=== PATIENT | male | born 1940 | race Caucasian/White ===

== ENCOUNTER → 2016-12-14 | Outpatient (CLI) | payer OTHER ==
[2016-12-14 09:37] LABS: FREE T4 (FREE THYROXINE) 1.78 ng/dL (0.93-1.71)
== END ==
LOC: LAB 07:15
PROVIDERS: ATTEND Internal Medicine
DX: E03.9 Hypothyroidism, unspecified (principal); I10 Essential (primary) hypertension; E78.5 Hyperlipidemia, unspecified; M10.9 Gout, unspecified; L82.1 Other seborrheic keratosis; Z85.46 Personal history of malignant neoplasm of prostate
CPT/HCPCS: 36415; 84439; 84443